=== PATIENT | female | born 1975 ===

== ENCOUNTER 2016-05-17 20:38 | Emergency (ER) | payer MEDICAID ==
[2016-05-17 20:38] VITALS: BMI 25.9
[2016-05-17 20:43] VITALS: TEMP 99.4; O2SAT 98
[2016-05-17 22:20] LABS: BASO % 0.3 % (0.0-2.0); EOS % 0.3 % (0.0-4.0); LYMPH # 1.8 K/uL (1.0-4.3); LYMPH % 20.6 % (20.0-40.0); MEAN CORPUSCULAR HEMOGLOBIN 29.9 pg (27.0-31.0); MEAN CORPUSCULAR HGB CONC 33.2 g/dL (33.0-37.0); MEAN PLATELET VOLUME 8.8 fl (7.2-11.7); MONO # 0.6 K/uL (0.0-0.8); NEUT # 6.2 K/uL (1.8-7.0); NEUT % 71.8 % (50.0-75.0); RED CELL DISTRIBUTION WIDTH 12.4 % (11.5-14.5); WHITE BLOOD COUNT 8.6 K/uL (4.8-10.8)
[2016-05-17 22:39] LABS: ALKALINE PHOSPHATASE 75 U/L (38-126); ALT/SGPT 24 U/L (9-52); AST/SGOT 28 U/L (14-36); BILIRUBIN,TOTAL 0.3 mg/dl (0.2-1.3); BLOOD UREA NITROGEN 15 mg/dl (7-17); CALCIUM 9.3 mg/dL (8.4-10.2); CARBON DIOXIDE 26 mmol/L (22-30); CHLORIDE 105 mmol/L (98-107); GFR AFRICAN-AMERICAN > 60; GLUCOSE,RANDOM 103 mg/dL (65-105); POTASSIUM 3.7 MMOL/L (3.6-5.0); SODIUM 143 mmol/l (132-148)
[2016-05-17 22:44] LABS: RBC URINE 4 /hpf (0-3); URINE BILIRUBIN NEGATIVE (NEGATIVE); URINE BLOOD NEGATIVE (NEGATIVE); URINE COLOR YELLOW (YELLOW); URINE GLUCOSE (UA) NEGATIVE (Normal); URINE KETONE NEGATIVE (NEGATIVE); URINE LEUKOCYTE ESTERASE MOD Leu/uL (Negative); URINE PROTEIN NEGATIVE (NEGATIVE); URINE UROBILINOGEN 0.2 mg/dL (0.2-1.0); WBC URINE 2 /hpf (0-5)
[2016-05-17 22:45] LABS: URINE BACTERIA RARE (<OCC)
--- NOTE | 2016-05-17 23:20 | ED PDOC ---
HPI: Back Time Seen by Provider: 05/17/16 20:44 Chief Complaint (Nursing): Back Pain Chief Complaint (Provider): h/a, neck pain, back pain History Per: Patient Additional Complaint(s): pt w/ hx lupus and previous low back pains presents c/o severe h/a, neck pain, back pain and pain and numbness to R arm and leg worsening 3 days. denies head injury or thunderclap h/a. c/o feeling flashes of warmth but no fevers. no dizziness, cp, sob, abd pain,n/v/d, urinary c/o, incontinence. seen at another ED yesterday, given morphine and d/c with percocets w/o relief. Past Medical History Reviewed: Historical Data, Nursing Documentation, Vital Signs Vital Signs: Last Vital Signs Temp 99.4 F 05/17/16 20:39 Pulse 101 H 05/17/16 20:39 Resp 24 05/17/16 20:39 BP 108/64 05/17/16 20:39 Pulse Ox 98 05/17/16 20:39 - Medical History PMH: Hypercholesterolemia Denies: HIV, Chronic Kidney Disease - Family History Family History: States: No Known Family Hx - Social History Current smoker - smoking cessation education provided: No Alcohol: None Drugs: Denies - Home Medications Home Medications: Ambulatory Orders Medication Instructions Recorded Cholecalciferol [Vitamin D 1000 IU] 1 tab PO DAILY 12/31/15 Hydroxychloroquine Sulfate 200 mg PO BID 05/17/16 [Plaquenil] - Allergies Allergies/Adverse Reactions: Allergies Allergy/AdvReac Type Severity Reaction Status Date / Time No Known Allergies Allergy Verified 05/17/16 21:43 Review of Systems ROS Statement: Except As Marked, All Systems Reviewed And Found Negative Musculoskeletal: Positive for: Neck Pain, Arm Pain, Back Pain, Leg Pain Neurological: Positive for: Numbness Physical Exam - Reviewed Nursing Documentation Reviewed: Yes Vital Signs Reviewed: Yes - Physical Exam Appears: Positive for: In Acute Distress (painful distress) Head Exam: Positive for: ATRAUMATIC, NORMAL INSPECTION, NORMOCEPHALIC Skin: Positive for: Normal Color, Warm, DRY Eye Exam: Positive for: EOMI, Normal appearance, PERRL Neck: Positive for: Pain On Movement Of Neck (R rotation, flexion. no midline tenderness. pain radiates to RUE with neck movement.) Cardiovascular/Chest: Positive for: Regular Rate, Rhythm Respiratory: Positive for: CNT, Normal Breath Sounds Gastrointestinal/Abdominal: Positive for: Normal Exam, Bowel Sounds, Soft. Negative for: Tenderness Back: Positive for: Normal Inspection, Decreased ROM, Other (tender across lumbar area. SLR pos RLE and crossover SLR pos LLE. strength 5/5 extremities x 4. n/v intact distally. ) Extremity: Positive for: Normal ROM. Negative for: Tenderness Neurologic/Psych: Positive for: Alert, adult high school instructor II-XII, Oriented. Negative for: Motor/Sensory Deficits - Laboratory Results Result Diagrams: 05/17/16 22:20 05/17/16 22:15 - ECG O2 Sat by Pulse Oximetry: 98 Medical Decision Making Medical Decision Making: w/u initiated with ct head and xrays of c and L spine, labs. 2340 ct head read as neg by radiologist. c spine and L spine xrays shows no fx no subluxation. cbc, chemistry includin esr neg. headache resolved and neck pain improved with morphine though pt still c/o low back pain. will remedicate , endorse to [facility] pending reevaluation. Disposition - Clinical Impression Clinical Impression: Strain of neck muscle, Lumbar radiculopathy - Patient ED Disposition Is Patient to be Admitted: Transfer of Care - Disposition Referrals: [facility] [Outside] Disposition: Transfer of Care Disposition Time: 00:31 Condition: IMPROVED Forms: [facility] ED School/Work Excuse - POA Present On Arrival: None
--- NOTE | 2016-05-17 23:44 | CT ---
PROCEDURE: CT HEAD WITHOUT CONTRAST. HISTORY: h/a COMPARISON: None available. TECHNIQUE: Axial computed tomography images were obtained through the head/brain without intravenous contrast. Radiation dose: Total exam DLP = 844 mGy-cm. This CT exam was performed using one or more of the following dose reduction techniques: Automated exposure control, adjustment of the mA and/or kV according to patient size, and/or use of iterative reconstruction technique. FINDINGS: HEMORRHAGE: No intracranial hemorrhage. BRAIN: No mass effect or edema. No atrophy or chronic microvascular ischemic changes. VENTRICLES: Unremarkable. No hydrocephalus. CALVARIUM: Unremarkable. PARANASAL SINUSES: Unremarkable as visualized. No significant inflammatory changes. MASTOID AIR CELLS: Unremarkable as visualized. No inflammatory changes. OTHER FINDINGS: None. IMPRESSION: No acute findings
[2016-05-18 00:02] VITALS: BP 96/53; PULSE 85; RESP 18
--- NOTE | 2016-05-18 01:21 | ED PDOC ---
- Laboratory Results Result Diagrams: 05/17/16 22:20 05/17/16 22:15 - ECG O2 Sat by Pulse Oximetry: 98 - Progress ED Course And Treament: Case endorsed to conventional mortgage underwriter from [employer] [facility] pending re-eval PAtient states she is feeling better after TOradol injection. Patient discharged with rx Naproxen, Flexeril. Patient states she has oxycodone at home, advised to use PRN severe pain. Follow up PMD 2-3 days. Return to ED for worsening/concerning symptoms. Disposition - Clinical Impression Clinical Impression: Cervical strain, Lumbar radiculopathy - POA Present On Arrival: None - Disposition Referrals: [facility] [Outside] Disposition: Routine/Home Disposition Time: 01:20 Condition: IMPROVED Prescriptions: Cyclobenzaprine [Cyclobenzaprine HCl] 10 mg PO BID PRN #6 tab PRN Reason: Muscle Spasm Naproxen [Naprosyn] 500 mg PO Q12 PRN #20 tablet PRN Reason: Pain, Moderate (4-7) Instructions: Cervical Strain (DC), Lumbar Radiculopathy (ED) Forms: [facility] ED School/Work Excuse Print Language: AMERICAN
--- NOTE | 2016-05-18 09:55 | RAD ---
PROCEDURE: Cervical Spine Radiographs. HISTORY: Pain. COMPARISON: None. FINDINGS: BONES: Alignment maintained. No fracture. Dens Intact. DISC SPACES: Normal. SOFT TISSUES: Normal. No prevertebral soft tissue swelling. OTHER FINDINGS: None. IMPRESSION: Normal cervical spine radiographs
--- NOTE | 2016-05-18 09:57 | RAD ---
PROCEDURE: Radiographs of the Lumbar Spine. HISTORY: pain COMPARISON: No prior. FINDINGS: BONES: There is a mild compression deformity of the left side of L4. There is mild curvature of the lumbar spine convex to the right DISC SPACES: Unremarkable. OTHER FINDINGS: None. IMPRESSION: There is a mild compression deformity of the left side of L4. There is mild curvature of the lumbar spine convex to the right
== END 2016-05-18 01:27 | disposition home or self-care (01) ==
LOC: H.ER 20:38
DX: M54.9 Dorsalgia, unspecified (principal); M54.16 Radiculopathy, lumbar region

== ENCOUNTER 2017-02-02 14:23 | Emergency (ER) | payer MEDICAID ==
[2017-02-02 14:23] VITALS: BMI 25.9
[2017-02-02 14:35] VITALS: BP 112/57; PULSE 84; RESP 20; TEMP 99.1; O2SAT 99
[2017-02-02] MEDS ORDERED: diaZEpam 10 mg/2 ml Inj IM ONE (15:02)
--- NOTE | 2017-02-02 15:15 | ED PDOC ---
HPI: Back Time Seen by Provider: 02/02/17 15:10 Chief Complaint (Nursing): Back Pain Chief Complaint (Provider): Back Pain History Per: Patient History/Exam Limitations: no limitations Onset/Duration Of Symptoms: Days Current Symptoms Are (Timing): Still Present Quality Of Discomfort: "Pain" Pain Scale Rating Of: 10 Previous Symptoms: Other Associated Symptoms: None Additional Complaint(s): Alejandrina Soto, a 41 year old female, with a past medical history of herniated disc presents to the ED complaining of back pain. The patient reports that she has been seen by an orthopedic and scheduled for physical therapy and has been to one session. She reports that the pain his exacerbated and rates it at a 10/ 10 on the pain scale. Patient does note pain on ambulation. Denies hematuria, dysuria and abdominal pain. PMD: Mik Scott Past Medical History Reviewed: Historical Data, Nursing Documentation, Vital Signs Vital Signs: Last Vital Signs Temp 99.1 F 02/02/17 14:33 Pulse 84 02/02/17 14:33 Resp 20 02/02/17 14:33 BP 112/57 L 02/02/17 14:33 Pulse Ox 99 02/02/17 14:33 - Medical History PMH: Hypercholesterolemia Denies: HIV, Chronic Kidney Disease Other PMH: Herniated Disc - Family History Family History: States: Unknown Family Hx - Living Arrangements Living Arrangements: With Family - Social History Current smoker - smoking cessation education provided: No Ex-Smoker (has not smoked in the last 12 months): No Alcohol: None Drugs: Denies - Home Medications Home Medications: Ambulatory Orders Medication Instructions Recorded Cholecalciferol [Vitamin D 1000 IU] 1 tab PO DAILY 12/31/15 Hydroxychloroquine Sulfate 200 mg PO BID 05/17/16 [Plaquenil] Cyclobenzaprine [Cyclobenzaprine 10 mg PO BID PRN #6 tab 05/18/16 HCl] Naproxen [Naprosyn] 500 mg PO Q12 PRN #20 tablet 05/18/16 Tramadol HCl [Ultram] 50 mg PO Q6 #15 tab 02/02/17 - Allergies Allergies/Adverse Reactions: Allergies Allergy/AdvReac Type Severity Reaction Status Date / Time No Known Allergies Allergy Verified 05/17/16 21:43 Review of Systems ROS Statement: Except As Marked, All Systems Reviewed And Found Negative Gastrointestinal: Negative for: Abdominal Pain Genitourinary Female: Negative for: Dysuria, Hematuria Musculoskeletal: Positive for: Back Pain Physical Exam - Reviewed Nursing Documentation Reviewed: Yes Vital Signs Reviewed: Yes - Physical Exam Appears: Positive for: Non-toxic, No Acute Distress Head Exam: Positive for: ATRAUMATIC, NORMAL INSPECTION, NORMOCEPHALIC Skin: Positive for: Normal Color, Warm, Dry. Negative for: Rash Eye Exam: Positive for: Normal appearance Cardiovascular/Chest: Positive for: Regular Rate, Rhythm, Chest Non Tender, Tachycardia Respiratory: Positive for: Normal Breath Sounds. Negative for: Wheezing, Respiratory Distress Back: Negative for: Normal Inspection (tenderness to midline lumbar spine; and positive straight leg raise ), L CVA Tenderness, R CVA Tenderness Extremity: Positive for: Normal ROM. Negative for: Tenderness, Deformity, Swelling Neurologic/Psych: Positive for: Alert, Oriented - ECG O2 Sat by Pulse Oximetry: 99 (RA) Pulse Ox Interpretation: Normal Medical Decision Making Medical Decision Makin Initial Impression 41 y/o female presenting with back pain Initial Plan * Udip * Toradol 30mg IM * Valium 10mg IM * Reevaluation 1515 Patient was given pain medication in the ED and was advised to follow up with dermatology specialist and to continue with physical therapy. ___ Scribe Attestation Documented by Bridgette Mendoza acting as a scribe for Lea Devlin PA-C. Scribe Attestation All medical record entries made by the Scribe were at my direction and personally dictated by me. I have reviewed the chart and agree that the record accurately reflects my personal performance of the history, physical exam, medical decision making, and the department course for this patient. I have also personally directed, reviewed, and agree with the discharge instructions and disposition. Disposition - Clinical Impression Clinical Impression: Lumbar radiculopathy - Patient ED Disposition Is Patient to be Admitted: No Counseled Patient/Family Regarding: Need For Followup - Disposition Referrals: [facility] [Outside] [facility] [Outside] Disposition: Routine/Home Disposition Time: 15:15 Condition: STABLE Additional Instructions: It is important your follow up with a pain management doctor and return to your orthopedic spine surgeon for further evaluation. Prescriptions: Tramadol HCl [Ultram] 50 mg PO Q6 #15 tab Instructions: Tramadol (By mouth), Lumbar Radiculopathy (ED), Chronic Back Pain (ED) Forms: [employer] (Tajik) Print Language: PORTUGUESE - POA Present On Arrival: None
== END 2017-02-02 16:05 | disposition home or self-care (01) ==
LOC: H.ER 14:23
DX: M54.16 Radiculopathy, lumbar region (principal); E78.00 Pure hypercholesterolemia, unspecified; Z87.891 Personal history of nicotine dependence
CPT/HCPCS: 81025; 96372; 99282; J1885